=== PATIENT | female | born 1960 | race Caucasian/White ===

== ENCOUNTER 2020-08-04 14:45 | Inpatient (IN) | payer OTHER ==
[~2020-08-04] VITALS: Ht 175.3 cm; Wt 67.2 kg
[~2020-08-04 14:45] MED LIST: SULTRIDS PO; TRAZ150T57 PO
[2020-08-04 16:02] LABS: BASOPHILS ABSOLUTE AUTO 0.07 K/mm3 (0.00-0.23); BASOPHILS PERCENT AUTO 1 % (0-2); EOSINOPHILS ABSOLUTE AUTO 0.05 K/mm3 (0.00-0.68); EOSINOPHILS PERCENT AUTO 1 % (0-6); Hematocrit 41.7 % (33.0-51.0); Hemoglobin 11.8 g/dL (11.5-16.0); IMMATURE GRAN ABSOLUTE AUTO 0.03 K/mm3 (0.00-0.10); IMMATURE GRAN PERCENT AUTO 0 % (0-1); LYMPHOCYTES ABSOLUTE AUTO 1.26 K/mm3 (0.84-5.20); LYMPHOCYTES PERCENT AUTO 15 % (21-46); MONOCYTES ABSOLUTE AUTO 0.85 K/mm3 (0.16-1.47); MONOCYTES PERCENT AUTO 10 % (4-13); Mean Corpuscular HGB 20.1 pg (26.0-34.0); Mean Corpuscular HGB Conc 28.3 g/dL (31.5-36.5); Mean Corpuscular Volume 71 fL (80-100); NEUTROPHILS ABSOLUTE AUTO 5.93 K/mm3 (1.96-9.15); NEUTROPHILS PERCENT AUTO 72 % (41-73); Platelet Count 295 K/mm3 (150-400); RDW Coefficient Variation 22.4 % (11.7-14.2); RDW Standard Deviation 54.7 fL (35.1-46.3); Red Blood Cell Count 5.87 M/mm3 (3.80-5.20); White Blood Cell Count 8.19 K/mm3 (4.00-11.30)
[2020-08-04 16:04] LABS: Mean Platelet Volume 10.5 fL (9.1-12.4)
[2020-08-04 16:58] LABS: Alanine Aminotransfer (ALT/SGP 52 U/L (12-78); Albumin, Blood 2.8 g/dL (3.4-5.0); Albumin/Globulin Ratio 0.7 (0.8-1.8); Alk Phos 120 U/L (50-136); Anion Gap 7 mmol/L (6-16); Aspartate Aminotrans (AST/SGOT 61 U/L (12-37); Bilirubin, Total 0.9 mg/dL (0.1-1.0); Blood Urea Nitrogen 25 mg/dL (8-24); CO2, Blood 22 mmol/L (21-32); Calcium, Blood 8.5 mg/dL (8.5-10.1); Chloride, Blood 106 mmol/L (98-108); Creatinine, Blood 0.96 mg/dL (0.40-1.00); Globulin, Blood 4.3 g/dL (2.2-4.0); Glomerular Filtration Rate >60 (60-); Glucose, Blood 103 mg/dL (70-99); Sodium, Blood 135 mmol/L (136-145); Total Protein, Blood 7.1 g/dL (6.4-8.2); Troponin I 0.228 ng/mL (0.000-0.040)
[2020-08-04 22:25] LABS: U Amphetamine Screen Not Detected; U Barbituate Screen Not Detected; U Benzodiazapine Screen Not Detected; U Buprenorphine Screen Not Detected; U Cannabinoids Screen Not Detected; U Cocaine Screen Not Detected; U Methadone Screen Not Detected; U Methamphetamine Screen DETECTED; U Opiates Screen Not Detected; U Oxycodone Screen Not Detected; U Phencyclidine Screen Not Detected; U Propoxyphene Screen Not Detected
--- NOTE | 2020-08-05 05:10 | NUR ---
SHIFT SUMMARY RECIEVED REPORT FROM SUMA LEE, ED @ AROUND 1999. ARRIVED TO MEDICAL UNIT VIA WHEELCHAIR @ 2024. NO ASSISTANCE REQUIRED WITH TRANSFER TO BED. ORIENTED TO ROOM AND CALL SYSTEM WE[facility] POLICIES REGARDING COMING AND GOING FROM ROOM/VISITING HOURS. A/O, ABLE TO MAKE NEEDS KNOWN. COOPERATIVE WITH CARE. CALLS AND ANSWERS QUESTIONS APPROPRIATELY. APPEARED TO REST AFTER ADMISSION PROCESS. INDEPENDENT TO BATHROOM. NO C/O PAIN/DISCOMFORT. NOTED EDEMA TO BLE WELL FINE CRACKLES TO LLL UPON AUSCULTATION. NO OTHER ACUTE CHANGES NOTED. BED IN LOWEST POSITION. CALL LIGHT AND BELONGINGS WITHIN REACH. CONTINUE WITH CURRENT PLAN OF CARE. REPORT TO BROOKE LEE.
[2020-08-05 05:18] LABS: Hematocrit 38.3 % (33.0-51.0); Hemoglobin 10.9 g/dL (11.5-16.0); Mean Corpuscular HGB Conc 28.5 g/dL (31.5-36.5); Mean Corpuscular Volume 70 fL (80-100); Platelet Count 248 K/mm3 (150-400); RDW Coefficient Variation 22.1 % (11.7-14.2); Red Blood Cell Count 5.45 M/mm3 (3.80-5.20); White Blood Cell Count 6.59 K/mm3 (4.00-11.30)
[2020-08-05 05:36] LABS: Mean Platelet Volume 10.8 fL (9.1-12.4)
[2020-08-05 05:58] LABS: Anion Gap 7 mmol/L (6-16); Blood Urea Nitrogen 26 mg/dL (8-24); Bun/Creatinine Ratio 26.3 (12.0-20.0); CHOL/HDL RATIO 4.3; CO2, Blood 27 mmol/L (21-32); Calcium, Blood 8.3 mg/dL (8.5-10.1); Chloride, Blood 102 mmol/L (98-108); Cholesterol 142 mg/dL (50-200); Creatinine, Blood 0.99 mg/dL (0.40-1.00); Glomerular Filtration Rate >60 (60-); Glucose, Blood 82 mg/dL (70-99); HDL Cholesterol 33 mg/dL (>39); LDL/HDL RATIO 2.8; Low Density Lipoprotein Chol 93 mg/dL (0-110); Potassium, Blood 3.2 mmol/L (3.5-5.5); Sodium, Blood 136 mmol/L (136-145); Triglycerides 78 mg/dL (30-160); Very Low Density Lipoprot Chol 15 mg/dL (6-32)
--- NOTE | 2020-08-05 07:16 | NUR ---
PT SLEEPING. RESP E/U. CALL LIGHT IN REACH. NO S/S DISTRESS. WILL ALLOW REST AND FULLY ASSESS WHEN AWAKE.
--- NOTE | 2020-08-05 17:02 | NUR ---
CONSULT: DR LOVE ORDERED EKG, DONE BY THIS RN. SHE WAS UP TO SEE PATIENT AND REVIEW EKG AND ECHO. CARDIOLOGY CONSULT ORDERED AND DR CHANCE IN TO SEE PATIENT. MEDICATION CHANGES MADE PER VERBAL ORDERS.
--- NOTE | 2020-08-05 18:24 | NUR ---
PT HAS BEEN STABLE THIS SHIFT. ANXIOUS TO GO HOME T/O THE DAY. TELE CONT TO HAVE PVC'S. HR CONTROLLED. ECHO AND EKG COMPLETED. SPRAY OPERATOR IN TO SEE PATIENT WITH NEW MED ORDERS. PT VOIDING WELL. EDEMA IMPROVING, HOWEVER CONTINUES TO BE PITTING FROM FEET TO THIGHS. LS DIM IN BASES. NO COUGH. SATS STABLE ON RA. PT UP INDEP IN ROOM. XANAX X1 FOR ANXIETY. AM LABS TO BE REPEATED. USES CALL LIGHT APPROPRIATELY PRN.
--- NOTE | 2020-08-06 04:58 | NUR ---
MELTER HELPER SUMMARY NO ACUTE CHANGES THIS SHIFT. PT AAOX4 AND PLEASANT. DENIES PAIN, SOB, N/V. MEDICATED FOR ANXIETY X1 WITH PRN XANAX. PT STILL WITH 3+ PITTING EDEMA OF BLE'S. PT REPORTS THAT THEY ARE GREATLY IMPROVED COMPARED TO WHEN SHE FIRST WAS ADMITTED. VSS, WILL CONTINUE TO MONITOR.
[2020-08-06 05:12] LABS: BASOPHILS ABSOLUTE AUTO 0.05 K/mm3 (0.00-0.23); BASOPHILS PERCENT AUTO 1 % (0-2); EOSINOPHILS ABSOLUTE AUTO 0.09 K/mm3 (0.00-0.68); EOSINOPHILS PERCENT AUTO 1 % (0-6); Hematocrit 38.8 % (33.0-51.0); Hemoglobin 11.1 g/dL (11.5-16.0); IMMATURE GRAN ABSOLUTE AUTO 0.02 K/mm3 (0.00-0.10); IMMATURE GRAN PERCENT AUTO 0 % (0-1); LYMPHOCYTES ABSOLUTE AUTO 0.93 K/mm3 (0.84-5.20); LYMPHOCYTES PERCENT AUTO 15 % (21-46); MONOCYTES ABSOLUTE AUTO 0.88 K/mm3 (0.16-1.47); MONOCYTES PERCENT AUTO 14 % (4-13); Mean Corpuscular HGB 20.1 pg (26.0-34.0); Mean Corpuscular HGB Conc 28.6 g/dL (31.5-36.5); Mean Corpuscular Volume 70 fL (80-100); NEUTROPHILS ABSOLUTE AUTO 4.46 K/mm3 (1.96-9.15); NEUTROPHILS PERCENT AUTO 69 % (41-73); NRBC ABSOLUTE 0.02 K/mm3 (0.00-0.02); NRBC Auto 0.3 /100 WBC (0.0-0.2); Platelet Count 262 K/mm3 (150-400); RDW Coefficient Variation 22.3 % (11.7-14.2); RDW Standard Deviation 53.2 fL (35.1-46.3); Red Blood Cell Count 5.52 M/mm3 (3.80-5.20); White Blood Cell Count 6.43 K/mm3 (4.00-11.30)
[2020-08-06 05:14] LABS: Mean Platelet Volume 10.7 fL (9.1-12.4)
[2020-08-06 05:30] LABS: Anion Gap 5 mmol/L (6-16); Blood Urea Nitrogen 28 mg/dL (8-24); Bun/Creatinine Ratio 32.3 (12.0-20.0); CHOL/HDL RATIO 4.8; CO2, Blood 28 mmol/L (21-32); Calcium, Blood 7.8 mg/dL (8.5-10.1); Chloride, Blood 103 mmol/L (98-108); Cholesterol 157 mg/dL (50-200); Creatinine, Blood 0.87 mg/dL (0.40-1.00); Glomerular Filtration Rate >60 (60-); Glucose, Blood 148 mg/dL (70-99); HDL Cholesterol 33 mg/dL (>39); LDL/HDL RATIO 3.1; Low Density Lipoprotein Chol 101 mg/dL (0-110); Magnesium, Blood 1.9 mg/dL (1.6-2.4); Potassium, Blood 3.9 mmol/L (3.5-5.5); Sodium, Blood 136 mmol/L (136-145); Triglycerides 116 mg/dL (30-160); Very Low Density Lipoprot Chol 23 mg/dL (6-32)
--- NOTE | 2020-08-06 17:23 | NUR ---
SHIFT SUMMARY PATIENT ALERT AND ORIENTED, INDEPENDENT IN THE ROOM THIS SHIFT. PATIENT UP TO THE BATHROOM MULTIPLE TIMES THIS SHIFT. PATIENT STATES THAT EDEMA IS GREATLY IMPROVED OVER ADMISSION. PATIENT ANXIOUS TO BE DISCHARGED AND BE WITH HER ANIMALS. PATIENT MEDICATED 1X THIS SHIFT FOR ANXIETY PER EMAR. VISITOR IN THE ROOM THIS AFTERNOON, PATIENT MUCH LESS ANXIOUS WITH VISITOR. PATIENT CURRENTLY SITTING UP IN BED VISITING WITH VISITOR.
--- NOTE | 2020-08-06 22:55 | NUR ---
HR/RHYTHM NOTIFIED @2224 BY TELE MONITOR PT HAD 5 BEAT RUN V TACH @2219, THEN CONVERTED TO ST c PVC @108. PT RESTING SITTING IN BED, STATES SHE FEELS RESTLESS & ANXIOUS, JUST MEDICATED c XANAX & TRAZADONE. VSS. DISCUSSED c CHARGE NURSE FRANCES JONES. WILL MONITOR.
--- NOTE | 2020-08-07 04:21 | NUR ---
SHIFT SUMMARY AOX4. VSS. TELE ST c PVC @101 .HAD 5 BEAT RUN V TACH LAST NIGHT, READ PREVIOUS NOTE. ANXIOUS, MEDICATED c XANAX PER ORDERS. DENIES DYSPNEA @REST. LUNGS DIM IN BASES. SPO2 >90% ON RA. +1 EDEMA BLE, PT STATES EDEMA & BREATHING BETTER THEN WHEN SHE CAME TO HOSPITAL. REPORTS NO BM SINCE 08/01, INFORMED DR CORADO & HE ORDERED BOWEL CARE MEDS. CALL LIGHT IN REACH.
[2020-08-07 08:46] LABS: Anion Gap 5 mmol/L (6-16); Blood Urea Nitrogen 23 mg/dL (8-24); CO2, Blood 28 mmol/L (21-32); Calcium, Blood 7.7 mg/dL (8.5-10.1); Chloride, Blood 106 mmol/L (98-108); Creatinine, Blood 0.82 mg/dL (0.40-1.00); Glomerular Filtration Rate >60 (60-); Glucose, Blood 122 mg/dL (70-99); Magnesium, Blood 1.8 mg/dL (1.6-2.4); Potassium, Blood 3.5 mmol/L (3.5-5.5); Sodium, Blood 139 mmol/L (136-145)
--- NOTE | 2020-08-07 10:03 | NUR ---
Echocardiogram performed by Crystal Galvez under my supervision.
[2020-08-07] MEDS ORDERED: ASPI81CH PO (11:52)
[2020-08-07] MEDS ORDERED: Prinivil10 MG PO (11:52)
[2020-08-07] MEDS ORDERED: METO25 PO (11:53)
[2020-08-07] MEDS ORDERED: SPIR25 PO (11:53)
[2020-08-07] MEDS ORDERED: FURO40 PO (11:58)
[2020-08-07] MEDS ORDERED: K-Dur20 MEQ PO (13:59)
--- NOTE | 2020-08-07 17:20 | NUR ---
DISCHARGE SUMMARY PATIENT DISCHARGED TO HOME. PATIENT ALERT, ORIENTED, INDEPENDENT IN THE ROOM. PATIENT PROVIDED WITH VERBAL AND WRITTEN DISCHARGE AND MEDICATION INSTRUCTIONS. PATIENT STATES NO QUESTIONS AT THIS TIME. PATIENT EDUCATED ON NEED TO MAINTAIN 1500 ML FLUID RESTRICTION AND 2G SALT DIET. IV REMOVED PRIOR TO DISCHARGE. PATIENT'S SON IN ROOM FOR DISCHARGE, PROVIDING TRANSPORTATION HOME. PATIENT TO VEHICLE VIA WHEELCHAIR.
== END 2020-08-07 17:13 | disposition home or self-care (01) | DRG 280 ==
LOC: ER 14:45 → MEDS 18:30
PROVIDERS: Nurse Practitioner Acute Care; Physician Assistant; ADMIT Internal Medicine
DX: I11.0 Hypertensive heart disease with heart failure (principal); I50.21 Acute systolic (congestive) heart failure; I21.A1 Myocardial infarction type 2; E87.1 Hypo-osmolality and hyponatremia; F17.210 Nicotine dependence, cigarettes, uncomplicated; F19.10 Other psychoactive substance abuse, uncomplicated; I42.9 Cardiomyopathy, unspecified; R73.9 Hyperglycemia, unspecified; F41.1 Generalized anxiety disorder; Z88.5 Allergy status to narcotic agent
CPT/HCPCS: 36415; 71046; 80048; 80053; 80061; 83735; 83880; 84443; 84484; 85025; 85027; 93005; 93010; 93306; 93308; 93321; 96374; 99285-25; A9270; J1650; J1940; J3475

== ENCOUNTER 2020-09-11 08:12 | Day surgery (SDC) | payer OTHER ==
[~2020-09-11 08:12] MED LIST changes: +ASPI81CH PO; +FURO40 PO; +K-Dur20 MEQ PO; +METO25 PO; +Prinivil10 MG PO; +SPIR25 PO
--- NOTE | 2020-09-11 08:51 | NUR ---
PT HERE FOR CTA. PT DENIES CP/SOB. VSS.
--- NOTE | 2020-09-11 09:35 | NUR ---
TEST COMPLETE. PT TOLERATED WELL. RETURNED TO DAY SURGERY FOR DISCHARGE.
--- NOTE | 2020-09-11 09:53 | NUR ---
Patient up to Ambulate independently. Gait steady. Discharge instructions reviewed with patient. Patient verbalizes understanding. Copy given to patient to take home. Discharged via ambulation via private car.
== END 2020-09-11 22:51 | disposition home or self-care (01) ==
LOC: CT 08:12
DX: I50.21 Acute systolic (congestive) heart failure (principal); I42.9 Cardiomyopathy, unspecified; R50.9 Fever, unspecified; F15.90 Other stimulant use, unspecified, uncomplicated; F17.200 Nicotine dependence, unspecified, uncomplicated; Z79.82 Long term (current) use of aspirin; Z88.5 Allergy status to narcotic agent
CPT/HCPCS: 75574; Q9967

== ENCOUNTER 2025-02-09 16:36 | Inpatient (IN) | payer OTHER ==
[~2025-02-09] VITALS: Ht 175.3 cm; Wt 58.2 kg
[2025-02-09] MEDS ORDERED: NS 1,000 ML IV SCH (18:20)
[2025-02-09] MEDS ORDERED: HYDROmorphone HCl/Pf 1MG SYR IV ONE ×2 (18:20→22:00)
[2025-02-09 18:39] LABS: BASOPHILS ABSOLUTE AUTO 0.03 K/mm3 (0.00-0.23); BASOPHILS PERCENT AUTO 1 % (0-2); EOSINOPHILS ABSOLUTE AUTO 0.06 K/mm3 (0.00-0.68); EOSINOPHILS PERCENT AUTO 1 % (0-6); Hematocrit 38.5 % (33.0-51.0); Hemoglobin 13.0 g/dL (11.5-16.0); IMMATURE GRAN ABSOLUTE AUTO 0.02 K/mm3 (0.00-0.10); IMMATURE GRAN PERCENT AUTO 0 % (0-1); LYMPHOCYTES ABSOLUTE AUTO 0.77 K/mm3 (0.84-5.20); LYMPHOCYTES PERCENT AUTO 16 % (21-46); MONOCYTES ABSOLUTE AUTO 0.87 K/mm3 (0.16-1.47); MONOCYTES PERCENT AUTO 18 % (4-13); Mean Corpuscular HGB Conc 33.8 g/dL (31.5-36.5); Mean Corpuscular Volume 94 fL (80-100); NEUTROPHILS ABSOLUTE AUTO 3.05 K/mm3 (1.96-9.15); NEUTROPHILS PERCENT AUTO 64 % (41-73); NRBC ABSOLUTE 0.00 K/mm3 (0.00-0.02); NRBC Auto 0.0 /100 WBC (0.0-0.2); Platelet Count 191 K/mm3 (150-400); RDW Coefficient Variation 12.7 % (11.7-14.2); RDW Standard Deviation 43.8 fL (35.1-46.3)
[2025-02-09 19:12] LABS: Alanine Aminotransfer (ALT/SGP 26.0 U/L (12-78); Albumin, Blood 2.5 g/dL (3.4-5.0); Albumin/Globulin Ratio 0.7 (0.8-1.8); Anion Gap 6.0 mmol/L (3-11); Aspartate Aminotrans (AST/SGOT 27.0 U/L (12-37); Bilirubin, Total 0.4 mg/dL (0.1-1.0); Blood Urea Nitrogen 14.0 mg/dL (8-24); CO2, Blood 34.0 mmol/L (21-32); Calcium, Blood 8.6 mg/dL (8.5-10.1); Chloride, Blood 99.0 mmol/L (98-108); Creatinine, Blood 0.68 mg/dL (0.40-1.00); Globulin, Blood 3.8 g/dL (2.2-4.0); Glucose, Blood 90.0 mg/dL (70-99); Potassium, Blood 3.6 mmol/L (3.5-5.5); Sodium, Blood 135.0 mmol/L (136-145); Total Protein, Blood 6.3 g/dL (6.4-8.2)
[2025-02-09] MEDS ORDERED: HYDROmorphone HCl/Pf 1MG SYR IV PRN (21:25)
[2025-02-09] MEDS ORDERED: Ondansetron HCl 2 MG / ML 2ML Vial IV PRN (21:25)
[2025-02-09] MEDS ORDERED: FLU VACC TS2025-26(6MOS UP)/PF 45 MCG/0.5 ML SYRINGE IM SCH (21:25)
[2025-02-09] MEDS ORDERED: OxyCODONE 5 mg/Acetamin 325 mg TABLET PO PRN (21:30)
[2025-02-09 23:38] VITALS: BP 173/75
[2025-02-09] MEDS ORDERED: NORVASC5 MG PO (23:48)
[2025-02-09] MEDS ORDERED: METO50ER PO (23:49)
[2025-02-09] MEDS ORDERED: TRAZ50 PO (23:50)
[2025-02-09] MEDS ORDERED: Cyclobenzaprine10 MG PO (23:50)
[2025-02-10] VITALS (14 sets, daily range): BP systolic 111–154; BP diastolic 56–82
[2025-02-10 02:39] LABS: U Amphetamine Screen DETECTED; U Barbiturate Screen Not Detected; U Benzodiazapine Screen Not Detected; U Buprenorphine Screen Not Detected; U Cannabinoids Screen Not Detected; U Cocaine Screen Not Detected; U Methadone Screen Not Detected; U Methamphetamine Screen DETECTED; U Opiates Screen DETECTED; U Oxycodone Screen DETECTED; U Phencyclidine Screen Not Detected
[2025-02-10 04:21] LABS: Anion Gap 6.0 mmol/L (3-11); Blood Urea Nitrogen 14.0 mg/dL (8-24); CO2, Blood 29.0 mmol/L (21-32); Calcium, Blood 8.5 mg/dL (8.5-10.1); Chloride, Blood 102.0 mmol/L (98-108); Creatinine, Blood 0.68 mg/dL (0.40-1.00); Glucose, Blood 98.0 mg/dL (70-99); Magnesium, Blood 1.8 mg/dL (1.6-2.4); Potassium, Blood 3.4 mmol/L (3.5-5.5); Sodium, Blood 134.0 mmol/L (136-145)
--- NOTE | 2025-02-10 05:15 | NUR ---
SHIFT SUMMARY PT ER ADMIT THIS SHIFT FOR LEFT FEMUR FRACTURE AFTER A GLF ON 02/01. PT PAIN MANAGED PER EMAR. VÁZQUEZ PLACED FOR RETENTION. PT HAS BEEN NPO SINCE MIDNIGHT FOR POSSIBLE PROCEDURE. ADMISSION COMPLETE. BED IN LOWEST POSITION, CALL LIGHT WITHIN REACH.
--- NOTE | 2025-02-10 06:19 | NUR ---
PROVIDER COMMUNICATION DR. DOUGLAS CALLED TO CHECK IN ON THIS PATIENT. HE STATED THAT HE WOULD GET HER INTO SURGERY TODAY. THE PATIENT HAS BEEN NPO SINCE 0000, SURGICAL [place] COMPLETE.
[2025-02-10] MEDS ORDERED: Tranexamic Acid 100 ML IV SCH (07:55)
[2025-02-10] MEDS ORDERED: Ropivacaine 0.5% HCl/Pf 123.125 MG,EPINEPHrine HCL 0.25 MG,Ketorolac Tromethamine 15 MG... INFIL SCH (07:55)
[2025-02-10] MEDS ORDERED: CeFAZolin Sodium 2,000 MG in NS 100 ML IV SCH (07:55)
[2025-02-10] MEDS ORDERED: HYDROmorphone HCl/Pf 1MG SYR IV PRN (09:40)
[2025-02-10] MEDS ORDERED: Ondansetron HCl 2 MG / ML 2ML Vial IV PRN (09:40)
[2025-02-10] MEDS ORDERED: FentaNYL Citrate 50 MCG/ML 2 ML Injection IV PRN ×2 (09:40→09:45)
[2025-02-10] MEDS ORDERED: Midazolam HCl 1MG / ML 2ML Vial IV PRN (09:40)
[2025-02-10] MEDS ORDERED: Prochlorperazine Edisylate 10 mg Vial IV PRN (09:40)
[2025-02-10] MEDS ORDERED: Metoclopramide HCl 5MG / ML 2ML Vial IV PRN (09:45)
[2025-02-10] MEDS ORDERED: Albuterol 2.5 MG/3 ML VIAL INH PRN (09:45)
--- NOTE | 2025-02-10 10:13 | NUR ---
PT RECENTLY TO [facility] BY BED WITH ASSIST.FAMILY WITH PT. History, Chart, Medications and Allergies reviewed before start of procedure.Patient confirms NPO status and agrees with scheduled surgery. Pre-Op teaching done. Pt verbalizes understanding. Lungs clear T/O to Auscultation. ANESTHESIA HAS BEEN TO SEE PT,SEEN ECHO RESULTS.
--- NOTE | 2025-02-10 10:19 | NUR ---
DR CASTRO HERE IN SDS TO SEE PT.
--- NOTE | 2025-02-10 10:19 | NUR ---
PT TO OR AT ABOUT 7004
--- NOTE | 2025-02-10 10:27 | NUR ---
TELE TAKEN TO PACU WITH PT STICKER. PT'S SON HAS PT'S EARRINGS PER HER REQ.
[2025-02-10] MEDS ORDERED: Dexamethasone Sod Phos 10 MG/ML 1ML VIAL ONE ×2 (10:53→13:32)
[2025-02-10] MEDS ORDERED: Ondansetron HCl 2 MG / ML 2ML Vial ONE ×2 (10:53→13:32)
[2025-02-10] MEDS ORDERED: Ketorolac Tromethamine 30mg Vial ONE ×2 (11:04→13:32)
[2025-02-10] MEDS ORDERED: Phenylephrine HCl 100 MCG/ML-NS 10MLSYR (1MG/10ML) ONE (11:10)
--- NOTE | 2025-02-10 13:07 | NUR ---
POST OP ARRIVAL TO UNIT AT APPROX 1300. PT SLEEPY, BUT AWAKENS APPROPRIATELY TO VERBAL STIMULI. LEFT HIP PRINEO DRESSING IS CDI WITH POLAR PACK IN PLACE. PT ABLE TO WIGGLE TOES AND CAP REFILL <3 SECONDS. PT DENIES PAIN AND DENIES NAUSEA. PT TOLERATED A SIP OF WATER. POST OP VSS AND IN PROGRESS. ON RA. ENCOURAGING TO DEEP BREATHE. TELE IN PLACE AND CURRENTLY IN SR AT 62 PER BAIL BONDING AGENT. CALL LIGHT WITHIN REACH.
[2025-02-10] MEDS ORDERED: FentaNYL Citrate 50 MCG/ML 2 ML Injection ONE (13:28)
--- NOTE | 2025-02-10 16:38 | NUR ---
SUMMARY: PT IS PODO L HIP ARTHROPLASTY. A/O, VSS. PT HAS DONE WELL TONIGHT. ABLE TO AMBULATE TO CHAIR, REPORTS NO PAIN. EATING AND DRINKING. VÁZQUEZ DRAINING, WILL REMOVE POD1. INCISION WNL, PT USES CALL LIGHT.
[2025-02-11 00:22] VITALS: BP 157/75
--- NOTE | 2025-02-11 05:07 | NUR ---
SHIFT SUMMARY PT S/P L TOTAL HIP. PT HAS BEEN UP AND AMBULATING, AND TOLERATING WELL. PAIN CONTROLLED PER EMAR. PT HAS RESTED T/O THE NIGHT. EYES CLOSED DURING NURSE ROUNDS CHEST RISES AND FALLS. SURIGCAL SITE WNL. VITALS STABLE. PT PENDING PHYSICAL THERAPY. SHE PREFERS HOME FOR DISCHARGE OVER SNF. PLAN OF CARE REMAINS UNCHANGED. BED IN LOWEST POSITION, CALL LIGHT WITHIN REACH.
[2025-02-11 05:30] VITALS: BP 169/96
[2025-02-11 07:02] VITALS: BP 168/73
[2025-02-11 13:59] VITALS: BP 150/68
[2025-02-11] MEDS ORDERED: Percocet 5-3251 EACH PO (14:02)
[2025-02-11] MEDS ORDERED: SENNA LAXATIVE8.6 MG PO (14:02)
[2025-02-11] MEDS ORDERED: DOCU100 PO (14:02)
--- NOTE | 2025-02-11 16:25 | NUR ---
DISCHARGE: PAIN IS MANAGED, PT VOIDED AFTER VÁZQUEZ DC'D. PACKET PRINTED AND PT EDUCATED. IV DC'D BY [place]. DRESSING CHANGED TO [employer] AND PT GIVEN DRESSINGS FOR HOME. PT LEFT UNIT AT ABOUT 1600
== END 2025-02-11 15:50 | disposition home or self-care (01) | DRG 522 ==
LOC: ER 16:36 → SURS 20:56 → ERHOLD 20:56 → SURS 22:03
PROVIDERS: Nurse Practitioner Acute Care; Orthopaedic Surgery; Student in an Organized Health Care Education/Training Program; ADMIT Student in an Organized Health Care Education/Training Program
PROC: 3E03329 Introduction of Other Anti-infective into Peripheral Vein, Percutaneous Approach (ICD-10-PCS; 2025-02-10)
PROC: 0SRS019 Replacement of Left Hip Joint, Femoral Surface with Metal Synthetic Substitute, Cemented, Open Approach (ICD-10-PCS; principal; 2025-02-10 10:00)
DX: S72.012A Unspecified intracapsular fracture of left femur, initial encounter for closed fracture (principal); E87.1 Hypo-osmolality and hyponatremia; I50.32 Chronic diastolic (congestive) heart failure; E86.0 Dehydration; E87.6 Hypokalemia; I11.0 Hypertensive heart disease with heart failure; G47.00 Insomnia, unspecified; F17.210 Nicotine dependence, cigarettes, uncomplicated; F15.10 Other stimulant abuse, uncomplicated; Z91.148 Patient's other noncompliance with medication regimen for other reason; Z79.82 Long term (current) use of aspirin; Z79.899 Other long term (current) drug therapy; Z88.5 Allergy status to narcotic agent; W18.30XA Fall on same level, unspecified, initial encounter
CPT/HCPCS: 36415; 51702; 73502; 80048; 80053; 83735; 83880; 85025; 93005; 93010; 93306; 96374; 97110; 97116; 97162; 99285-25; A9270; C1713; C1776; J0166; J0690; J0735; J1100; J1171; J1885; J2250; J2371; J2405; J2704; J2795; J3010; J7030; J7120